=== PATIENT | female | born 1965 | race Caucasian/White ===

== ENCOUNTER 2018-12-27 14:17 | Emergency (ER) | payer SELFPAY ==
[2018-12-27] MEDS ORDERED: NORMAL SALINE 1000 ML 1,000 ML IV ONE (14:49)
[2018-12-27 14:57] LABS: ABSOLUTE BASOPHILS # (AUTO) 0.1 10^3/uL (0.0-0.2); ABSOLUTE EOSINOPHILS # (AUTO) 0.2 10^3/uL (0.0-0.6); ABSOLUTE LYMPHOCYTES (AUTO) 2.1 10^3/uL (0.5-4.7); ABSOLUTE NEUT (AUTO) 6.5 10^3/uL (1.7-8.2); EOSINOPHILS % (AUTO) 1.8 % (0-6); HEMATOCRIT 40.7 % (36.0-47.0); HEMOGLOBIN 13.8 g/dL (12.0-15.5); LYMPHOCYTES % (AUTO) 21.4 % (13-45); MEAN CORPUSCULAR HGB CONC 33.9 g/dL (32.0-36.0); MEAN CORPUSCULAR VOLUME 88 fl (80-97); MONOCYTES % (AUTO) 10.2 % (3-13); PLATELET COUNT 270 10^3/uL (150-450); RED BLOOD COUNT 4.61 10^6/uL (3.72-5.28); RED CELL DISTRIBUTION WIDTH 14.2 % (11.5-14.0); SEGMENTED NEUTROPHILS % (AUTO) 65.6 % (42-78); TOTAL CELLS COUNTED % (AUTO) 100 %
[2018-12-27 15:13] LABS: ALBUMIN 4.1 g/dL (3.5-5.0); ALKALINE PHOSPHATASE 45 U/L (38-126); ANION GAP 10 (5-19); ASPARTATE AMINO TRANSFERASE 22 U/L (14-36); BILIRUBIN,DIRECT 0.1 mg/dL (0.0-0.4); BILIRUBIN,TOTAL 0.4 mg/dL (0.2-1.3); BLOOD UREA NITROGEN 19 mg/dL (7-20); CALCIUM 9.8 mg/dL (8.4-10.2); CARBON DIOXIDE 25 mmol/L (22-30); CHLORIDE 106 mmol/L (98-107); GLUCOSE 99 mg/dL (75-110); TOTAL PROTEIN 7.2 g/dL (6.3-8.2)
--- NOTE | 2018-12-27 15:28 | ER Document Report ---
ED Syncope and Near Syncope - General Chief Complaint: Syncope Stated Complaint: POSSIBLE SEIZURE Time Seen by Provider: 12/27/18 14:47 Primary Care Provider: VERONICA WILLIAM NP [Primary Care Provider] - Follow up as needed TRAVEL OUTSIDE OF THE [place] IN LAST 30 DAYS: No - HPI Notes: 53-year-old female with history of hypertension to the emergency department via EMS with complaints of a possible syncopal episode that occurred just prior to arrival. She was at a [place] today when she felt like she got overheated. She states that she was sitting in the shade underneath the tray and asked her to go get her some water because she is feeling poor relief. He states that when she got back to her she attempted to try to drink the water but was very "shaky". Patient states that she attempted to drink the water, she felt like she was going to pass out and her vision "magda out". Her states that the patient got a blank stare across her face and had her eyes open but would not respond to him or their friend. He states that this episode lasted approximately 20 seconds. After the episode the medics were called. Of note medics noted that patient had low blood pressure x2 readings in the ambulance. Here in the emergency department her blood pressure has been normotensive. Patient states that she is feeling better now. She has no prior history of seizures. She has a history of high blood pressure and takes lisinopril and HCTZ. She states that she had one alcoholic beverage today. She denies any chest pain, shortness of breath, headache, abdominal pain. She has not had any nausea or vomiting or diarrhea. - Related Data Allergies/Adverse Reactions: codeine Allergy (Verified 12/27/18 19:05) Past Medical History - General Information source: Patient - Social History Smoking Status: Current Every Day Smoker Frequency of alcohol use: Occasional Drug Abuse: None Family History: Reviewed & Not Pertinent Review of Systems - Review of Systems Constitutional: denies: Chills, Fever EENT: No symptoms reported Cardiovascular: See HPI, Syncope. denies: Chest pain, Palpitations, Heart racing, Orthopnea, Dyspnea, Dizziness, Lightheaded Respiratory: denies: Cough, Short of breath Gastrointestinal: denies: Abdominal pain, Diarrhea, Nausea, Vomiting Genitourinary: No symptoms reported Musculoskeletal: No symptoms reported Skin: No symptoms reported Neurological/Psychological: denies: Headaches, Numbness, Tingling -: Yes All other systems reviewed and negative Physical Exam - Vital signs Vitals: Resp Pulse Ox 15 100 12/27/18 14:27 12/27/18 14:27 Selected Entries 12/27/18 14:29 Temperature 98.2 F Heart Rate ( 71 Monitors) Respiratory 20 Rate Blood Pressure 125/91 H Blood Pressure 102 Mean Interpretation: Normal - General General appearance: Appears well, Alert - HEENT Head: Normocephalic, Atraumatic Eyes: Normal Pupils: PERRL Ears: Normal External canal: Normal Tympanic membrane: Normal Sinus: Normal Nasal: Normal Mouth/Lips: Normal Pharynx: Normal. No: Erythema, Exudate, Potential airway comprom. Neck: Normal, Supple. No: Lymphadenopathy, Meningismus - Respiratory Respiratory status: No respiratory distress Chest status: Nontender Breath sounds: Normal. No: Rales, Rhonchi, Stridor, Wheezing Chest palpation: Normal - Cardiovascular Rhythm: Regular Heart sounds: Normal auscultation Murmur: No - Abdominal Inspection: Normal Distension: No distension Bowel sounds: Normal Tenderness: Nontender. No: McBurney's point, Khan's sign, Guarding, Rebound Organomegaly: No organomegaly - Back Back: Normal, Nontender. No: CVA tenderness - Extremities General upper extremity: Normal inspection, Nontender, Normal color, Normal ROM, Normal temperature General lower extremity: Normal inspection, Nontender, Normal color, Normal ROM, Normal temperature, Normal weight bearing. No: Bailey's sign - Neurological Neuro grossly intact: Yes Cognition: Normal Orientation: AAOx4 [place] Coma Scale Eye Opening: Spontaneous [place] Coma Scale Verbal: Oriented [place] Coma Scale Motor: Obeys Commands [place] Coma Scale Total: 15 Speech: Normal Cranial nerves: Normal, Other - no dysarthria. No: Facial palsy, Forehead sparing, Gaze palsy, Sensory deficit, Tongue deviation Cerebellar coordination: Normal, Other - normal finger to nose bilaterally. No: Gait ataxia, Heel-olivares - normal heel to olivares bilaterally Motor strength normal: LUE, RUE, LLE, RLE Additional motor exam normals: Equal door maker. No: Pronator drift Sensory: Normal - Psychological Associated symptoms: Normal affect, Normal mood - Skin Skin Temperature: Warm Skin Moisture: Dry Skin Color: Normal Course - Re-evaluation Re-evalutation: patient has done well here in the ER today. No low blood pressures have been measured, noted mild elevated CR. Noted UA with + nitrates, + WBC -- will culture and go ahead and treat for UTI. Patient is not orthostatic and has been able to walk around the department. Will discharge home. she has a low risk [place] syncope rule. Encouraged to return if worse or repeat episodes. Follow up with her PCP on saturday. She agrees with the plan. Impression: Syncope, UTI. Will follow treatment plan as outlined above. Patient agrees with the plan. - Vital Signs Vital signs: Temp Pulse Resp BP Pulse Ox 98 F 72 18 157/75 H 94 12/27/18 15:47 12/27/18 18:01 12/27/18 17:00 12/27/18 18:01 12/27/18 17:00 - Laboratory Result Diagrams: 12/27/18 14:40 12/27/18 14:40 Laboratory results interpreted by me: 12/27/18 12/27/18 12/27/18 14:40 14:40 17:08 RDW 14.2 H Creatinine 1.50 H Est GFR ( Amer) 44 L Est GFR (MDRD) Non-Af 36 L Urine Blood SMALL H Urine Nitrite POSITIVE H Discharge - Discharge Clinical Impression: Syncope Qualifiers: Syncope type: unspecified Qualified Code(s): R55 - Syncope and collapse UTI (urinary tract infection) Qualifiers: Urinary tract infection type: acute cystitis Hematuria presence: without hematuria Qualified Code(s): N30.00 - Acute cystitis without hematuria Condition: Stable Disposition: HOME, SELF-CARE Instructions: Urinary Tract Infection ([facility]), Syncopal Episode ([facility]) Additional Instructions: RETURN IMMEDIATELY IF YOU HAVE ANOTHER EPISODE OF PASSING OUT OR ANY WORRISOME SYMPTOMS. COMPLETE ANTIBIOTICS. PUSH FLUIDS. FOLLOW UP WITH PRIMARY CARE ON SATURDAY. REST. Prescriptions: Fluconazole [Diflucan] 150 mg PO ONCE PRN #1 tablet PRN Reason: Cephalexin Monohydrate [Keflex 500 mg Capsule] 500 mg PO BID 7 Days #14 capsule Forms: Return to Work Referrals: VERONICA WILLIAM NP [Primary Care Provider] - Follow up in 3-5 days
--- NOTE | 2018-12-27 17:04 | RADIOLOGY REPORT (SQ) ---
EXAM DESCRIPTION: CT HEAD WITHOUT COMPLETED DATE/TIME: 12/27/2018 4:38 pm REASON FOR STUDY: possible syncopal episode COMPARISON: None. TECHNIQUE: Axial images acquired through the brain without intravenous contrast. Images reviewed wi th bone, brain and subdural windows. Additional sagittal and coronal reconstructions were generated. Images stored on PACS. All CT scanners at this facility use dose modulation, iterative reconstruction, and/or weight based d osing when appropriate to reduce radiation dose to as low as reasonably achievable (ALARA). [facility]: Dose Right [facility]: CareDose [facility]: Dose Right [facility]: Teradose 4D [facility]: Smart [place] RADIATION DOSE: CT Rad equipment meets quality standard of care and radiation dose reduction techniq ues were employed. CTDIvol: 53.2 mGy. DLP: 937 mGy-cm. mGy. LIMITATIONS: None. FINDINGS: VENTRICLES: Normal size and contour. CEREBRUM: No masses. No hemorrhage. No midline shift. No evidence for acute infarction. Normal gra y/white matter differentiation. No areas of low density in the white matter. CEREBELLUM: No masses. No hemorrhage. No alteration of density. No evidence for acute infarction. EXTRAAXIAL SPACES: No fluid collections. No masses. ORBITS AND GLOBE: No intra- or extraconal masses. Normal contour of globe without masses. CALVARIUM: No fracture. PARANASAL SINUSES: No fluid or mucosal thickening. SOFT TISSUES: No mass or hematoma. OTHER: No other significant finding. IMPRESSION: NORMAL BRAIN CT WITHOUT CONTRAST. EVIDENCE OF ACUTE STROKE: NO. COMMENT: Quality ID # [id number]: Final reports with documentation of one or more dose reduction techniques (e.g., Automated exposure control, adjustment of the mA and/or kV according to patient size, use of iterative reconstruction technique) TECHNICAL DOCUMENTATION: JOB ID: [id number] [employer]- All Rights Reserved Reading location - IP/workstation name: [email or web address]
--- NOTE | 2018-12-27 17:12 | EKG REPORT ---
SEVERITY:- NORMAL ECG - SINUS RHYTHM : Confirmed by: Markos Marshall MD 27-Dec-2018 17:11:54
[2018-12-27 17:41] LABS: APPEARANCE,URINE SLIGHTLY-CLOUDY; BILIRUBIN,URINE NEGATIVE (NEGATIVE); COLOR,URINE YELLOW; GLUCOSE, URINE NEGATIVE (NEGATIVE); KETONES,URINE NEGATIVE (NEGATIVE); LEUKOCYTE ESTERASE,URINE NEGATIVE (NEGATIVE); NITRITE,URINE POSITIVE (NEGATIVE); PROTEIN,URINE NEGATIVE (NEGATIVE); URINE SPECIFIC GRAVITY 1.014; UROBILINOGEN,URINE NEGATIVE mg/dL (<2.0)
[2018-12-27 19:05] VITALS: BP 140/72
== END 2018-12-27 18:50 | disposition home or self-care (01) ==
LOC: ER 14:17
DX: R55 Syncope and collapse (principal); N30.00 Acute cystitis without hematuria; I10 Essential (primary) hypertension
CPT/HCPCS: 93005; 36415; 87086; 83735; 85025; 87088; 80053; 81001; 84484; 87186; 70450; 93010; J7030; 96360; 99284